=== PATIENT | female | born 1990 | race Caucasian/White ===

== ENCOUNTER 2016-08-12 18:31 | Inpatient (IN) | payer BC, OTHER ==
[~2016-08-12] VITALS: Ht 170.2 cm; Wt 78.5 kg
--- NOTE | ~2016-08-12 | OR ---
PATIENT'S NAME: BENNY AGRSIA [facility] AGE: 26 Y [address] ROOM: [address] [place] [address] LOCATION: [facility] ADMIT DATE: 08/12/2016 OR/Procedure Report DISCHARGE DATE: FAMILY PHYSICIAN: JUAN LUIS HEREDIA MD ATTENDING PHYSICIAN: JUAN LUIS HEREDIA SURGEON: Juan Luis Heredia MD TOUR ESCORT: None. DATE OF PROCEDURE: 08/12/2016 PREOPERATIVE DIAGNOSIS: A 38 and 6/7th week intrauterine for induction of labor for macrosomia and psychosocial factor including over 2.5 hours from hospital. POSTOPERATIVE DIAGNOSIS: A 39 and 0/7th weeks delivery of a viable male at 0537 hours weighing 8 pounds 14 ounces with score of 8 at 1 minute and 9 at 5 minutes. PROCEDURE: Normal vaginal delivery with induction of labor and artificial rupture of membranes. ANESTHESIA: Spinal. ESTIMATED BLOOD LOSS: 150 mL. INDICATIONS: This 26-year-old -0-1-1, presents at 38 and 6/7th weeks gestation by LMP as well as first trimester ultrasound with an EDC of 08/20/2016 for induction of labor. She lives approximately 2.5 hours away from the hospital, as well as her most recent ultrasound on 08/09/2016 showed estimated weight of nearly 4000 g. course was uncomplicated. lab data includes blood type O positive with negative antibody screen, rubella immune, VDRL nonreactive, hep B surface antigen negative, HIV nonreactive, GBS negative. She presented at 1800 hours on 08/12/2016 for induction of labor. She was found to be 1 to 2 cm, 50%, -2 at that time. heart rate was reactive and reassuring. She remained normotensive throughout the course of her labor. She was started with Cervidil x1 and had slow progression to about 2 cm. Second dose of Cervidil was given at 0249 hours. The patient then subsequently rapidly progressed. She received a spinal around 0500 hours. She was deemed to be complete at 0508 hours. She had artificial rupture of membranes at 0510 hours and was allowed to push. DESCRIPTION OF PROCEDURE: The patient was noted to be complete, pushing, and so she was placed in a dorsal lithotomy position, prepped and draped in the usual sterile fashion for vaginal delivery. The patient was asked to push and the head was delivered spontaneously in the OA position over an intact perineum. Nuchal cord was checked and none was noted. The anterior shoulder PATIENT'S NAME: BENNY GARSIA [facility] AGE: 26 Y [address] ROOM: [address] [address] LOCATION: [facility] ADMIT DATE: 08/12/2016 OR/Procedure Report DISCHARGE DATE: FAMILY PHYSICIAN: JUAN LUIS HEREDIA MD ATTENDING PHYSICIAN: JUAN LUIS HEREDIA was then easily delivered followed by the posterior shoulder quickly thereafter. Remainder of the was easily delivered. The face was then subsequently wiped, and the patient had a spontaneous cry and spontaneous movement of all 4 extremities. Cord was clamped x2 and noted to have 2 arteries and 1 vein. was passed to the mother's abdomen where the nursing staff were in independence. Cord blood was then obtained. Placenta was delivered intact at 0540 hours. Examination of the cervix and vaginal vault did not reveal any lacerations. Examination of the perineum showed no lacerations. The patient overall tolerated the procedure and was recovered in Labor and Delivery with her . All sponge and needle counts were correct. Both mom and baby were doing quite well at the end of the procedure. MD AMRIT NINO/modl /[id number] d: 08/13/16705 t: 08/23/16 0843, OPERATIVE SUMMARY
[2016-08-12 20:05] LABS: BASOPHIL # 0.1 K/uL (0.0-0.2); BASOPHIL % 0.7 %; EOSINOPHIL # 0.2 K/uL (0.0-0.5); EOSINOPHIL % 1.5 %; HEMATOCRIT 32.9 % (33.0-46.0); HEMOGLOBIN 10.9 g/dL (11.0-15.0); IMMATURE GRANULOCYTE # 0.1 K/uL (0.0-0.3); IMMATURE GRANULOCYTE % 0.7 %; LYMPHOCYTE # 2.6 K/uL (0.8-4.0); LYMPHOCYTE % 24.1 %; MCHC 33.1 gm/dL (32.0-36.5); MCV 87.5 fl (83.0-98.0); MONOCYTE # 0.9 K/uL (0.0-1.0); MONOCYTE % 8.2 %; MPV 10.9 fl (9.4-12.4); NEUTROPHIL # (ANC) 6.9 K/uL (1.8-7.8); NEUTROPHIL % 64.8 %; NRBC % 0 /100WBC (0-0.00); PLATELET COUNT 218 K/uL (150-450); RBC 3.76 M/uL (3.50-5.00); RDW-CV 13.2 % (11.9-14.6); WBC 10.7 K/uL (4.0-11.0)
[2016-08-12] MEDS ORDERED: PRENATAL 1+1)(P1 TAB PO (20:37)
--- NOTE | 2016-08-13 17:51 | NUR ---
Last VS: T:98.6 P:86 R: 16 BP: 107/47 Pain ratin Last pain med: Percocet Medicated at: 1638 Effective: Yes Breasts: , Nipples: INTACT (has both oint's) Fundus: FIRM Lochia: SMALL Epis/Perineum: NONE, INTACT Voiding well: Y Significant event: *.UP AD CRHIS, WALKED HALLWAY X3. IV DC'D. LAST MOTRIN GIVEN APPROX.1430 FOR CRAMPS.
--- NOTE | 2016-08-14 04:21 | NUR ---
VSS. Fundus firm, midline, 1 below. Small flow. Hydrogel pads-nipples tender. last Motrin at 2300. Independent with cares. Home today.
[2016-08-14 05:41] LABS: BASOPHIL # 0.1 K/uL (0.0-0.2); BASOPHIL % 0.9 %; EOSINOPHIL # 0.3 K/uL (0.0-0.5); EOSINOPHIL % 2.1 %; HEMATOCRIT 29.1 % (33.0-46.0); HEMOGLOBIN 9.7 g/dL (11.0-15.0); IMMATURE GRANULOCYTE # 0.1 K/uL (0.0-0.3); IMMATURE GRANULOCYTE % 0.8 %; LYMPHOCYTE # 3.7 K/uL (0.8-4.0); LYMPHOCYTE % 31.5 %; MCH 29.3 pg (27.0-34.0); MCHC 33.3 gm/dL (32.0-36.5); MCV 87.9 fl (83.0-98.0); MONOCYTE # 0.9 K/uL (0.0-1.0); MONOCYTE % 7.8 %; MPV 10.4 fl (9.4-12.4); NEUTROPHIL # (ANC) 6.6 K/uL (1.8-7.8); NEUTROPHIL % 56.9 %; NRBC % 0 /100WBC (0-0.00); PLATELET COUNT 181 K/uL (150-450); RBC 3.31 M/uL (3.50-5.00); RDW-CV 13.4 % (11.9-14.6); WBC 11.7 K/uL (4.0-11.0)
[2016-08-14] MEDS ORDERED: MOTRIN800 MG PO (14:12)
[2016-08-14] MEDS ORDERED: LANSINOH7 GM TOP (14:12)
[2016-08-14] MEDS ORDERED: APNO TOP (14:12)
--- NOTE | 2016-08-14 14:41 | NUR ---
Met with patient. Introduced myself and explained the role of the CM department. Instructed patient to notify insurance of the child's . Addressed needs with the patient, but the family denies any discharge needs at this time. Likely discharge to home tomorrow.
== END 2016-08-14 20:48 | disposition disaster alternative care site (69) | DRG 775 ==
LOC: G2NOB 18:31 → GOBS 18:40
PROVIDERS: ADMIT Family Medicine
PROC: 10E0XZZ Delivery of Products of Conception, External Approach (ICD-10-PCS; principal; 2016-08-12)
DX: O36.63X0 Maternal care for excessive fetal growth, third trimester, not applicable or unspecified (principal); Z37.0 Single live birth; Z3A.39 39 weeks gestation of pregnancy
CPT/HCPCS: J2590; J3010; J7120